=== PATIENT | female | born 1960 | race African-American/Black ===

== ENCOUNTER 2023-10-10 16:22 | Emergency (ER) | payer SELFPAY ==
--- NOTE | ~2023-10-10 | US_ITS ---
EXAMINATION: US venous doppler [facility] DATE: 10/10/2023 19:14 INDICATION: pain; recent extensive travel . TECHNIQUE: Grayscale images without and with compression and Doppler images of the left lower extremi ty veins were obtained. COMPARISON: None FINDINGS: The left common femoral vein, profunda (deep) femoral vein, femoral vein, popliteal vein, peroneal v ein, posterior tibial veins, and greater saphenous vein are patent. IMPRESSION: Patent left lower extremity veins. No evidence of deep venous thrombosis. Reviewed, dictated and finalized at location K. [employer]
--- NOTE | ~2023-10-10 | XR_ITS ---
EXAM: XR knee LT min 4V DATE: 10/10/2023 17:17 HISTORY: pain x 1 month ANTERIORLY . COMPARISON: None available. FINDINGS: Mildly decreased mineralization. No fracture or dislocation. No lytic or blastic lesion. M ild left knee osteoarthritis. Quadriceps enthesopathy. No erosion or periosteal change. Soft tissues within normal limits. IMPRESSION: No acute osseous finding in the left knee. Reviewed, dictated and finalized at location K. [employer]
[2023-10-10 16:24] VITALS: BP 133/89; PULSE 70; RESP 16; TEMP 36.6; O2SAT 98
--- NOTE | 2023-10-10 16:49 | PC.NURSE ---
Pt states she has Codeine tablets that she got from a MD in [place] but they are not working.
--- NOTE | 2023-10-10 17:16 | ED.EXTPRO ---
HPI - Extremity Problem General Chief complaint: Extremity Problem,Nontraumatic Stated complaint: knee pain Time Seen by Provider: 10/10/23 17:16 Source: patient and family (son) Mode of arrival: ambulatory Limitations: no limitations History of Present Illness HPI Narrative: This is a 63 year old female who presents with left knee pain for the past month. She denies any injury/blunt or penetrating trauma but she has been using it a lot while walking and traveling. She has traveled to [place]. She has been using paracetamol for pain/palliation. Describes pain as sharp and occuring intermittently. Denies paresthesias or fevers. She denies any weakness. Unclear if it has either given out or been catching/locking. Related Data Allergies Allergy/AdvReac Type Severity Reaction Status Date / Time No Known Allergies Allergy Verified 10/10/23 16:45 [facility] Social History Social History Social History: Originally from [facility]. Has a son. Exam Narrative: GENERAL: Well-appearing, well-nourished, and in no acute distress. HEAD: Normocephalic, atraumatic. ENT: Nares clear, no rhinorrhea or epistaxis. NECK: Supple. CHEST: No respiratory distress. Speaks in clear sentences HEART: Regular rate. Normal peripheral pulse palpable in bilateral lower DPs. . ABDOMEN: Soft, , nondistended EXTREMITIES: Normal range of motion. No edema. No muscle atrophy. Knees and lower extremiteis are grossly symmetric. 5/5 strength with hip flexion/abduction/adduction. 5/5 strength with knee flexion/extension. 5/5 strength with ankle plantarflexion/dorsiflexion. Slight laxity anteriorly and posteriorly with application of stress on the left compared to the right, but it is mild and there are clear endpoints. Tenderness to palpation along medial aspect of left knee joint at the joint line. Pain with provocative movements of the knee with application of stress, straining, and rotation. SKIN: Warm, dry, no rash. No scars, erythema, or swelling. NEURO: No focal deficits. Alert and oriented. Sensation intact to gross touch throughout bilateral knees and lower extremities PSYCH: Normal mood and affect. Course Vital Signs Vital signs: Vital Signs Temperature 97.8 F 10/10/23 16:24 Pulse Rate 70 10/10/23 16:24 Respiratory Rate 16 10/10/23 16:24 Blood Pressure 133/89 10/10/23 16:24 Pulse Oximetry 98 10/10/23 16:24 Temperature 97.8 F 10/10/23 16:24 Pulse Rate 74 10/10/23 19:47 Respiratory Rate 16 10/10/23 19:47 Blood Pressure 130/78 10/10/23 19:47 Pulse Oximetry 98 10/10/23 19:47 MDM - Extremity (Nontraumatic) MDM Narrative Medical decision making narrative: This is a 63 year old who presents with left knee pain. In the ED she is hemodynamically stable with vital signs within normal limits. No traumatic injury but will obtain plain film imaging to exclude fractures/bony injury. Similarly, does not sound or appear consistent with DVT, though patient has been traveling extensively with flight to and from [place] thus will obtain US. These are negative. I suspect meniscal injury/tear based on description of pain and location of pain on physical exam. Physical exam also consistent with this, though she does have slightly increased laxity of the ACL and PCL on provoking maneuvers, making injury/tears of these also possible. Patient provided a knee immobilizer, pain medication, and instructions on outpatient follow up. Stable for discharge. She is observed ambulating with knee immobilizer. Differential Diagnosis Differential diagnosis: Likely herpes zoster, gout, cellulitis, superficial thrombophlebitis, lower extremity edema, deep vein thrombosis of lower extremity and other (ligament tear (ACL/MCL/PCL), meniscal injury; fracture) Imaging Data Radiologist's impression: No acute osseous finding in the left knee. Patent left lower extremity veins. No evidence of deep ve
[2023-10-10] MEDS: HYDROcodone/acetaminophen (*CRX) 5-325 MG TABLET 1 TAB PO (19:40)
[2023-10-10 19:47] VITALS: BP 130/78; PULSE 74; RESP 16; O2SAT 98
== END 2023-10-10 19:55 | disposition home or self-care (01) ==
PROVIDERS: Emergency Provider Student in an Organized Health Care Education/Training Program
DX: M23.304 Other meniscus derangements, unspecified medial meniscus, left knee (principal)
CPT/HCPCS: 73564; 93971; 99284; A9270